=== PATIENT | female | born 1990 | race Caucasian/White ===

== ENCOUNTER 2018-05-25 20:15 | Emergency (ER) | payer BC, MEDICAID ==
[~2018-05-25] VITALS: Ht 167.6 cm; Wt 108.9 kg
--- NOTE | 2018-05-25 20:22 | NUR ---
PT BIB SELF. COMP OF FEELING "SHORT OF BREATH, INHALER NOT WORKING, REFERRED BY PRIMARY", NO SOB WITH AMBULATION. NO ACUTE DISTRESS AT THIS TIME. NO PAIN NOTED. AWAITING MD TUBBS.
[2018-05-25 20:30] VITALS: BP 158/88
== END 2018-05-25 20:43 | disposition home or self-care (01) ==
LOC: ER 20:26
DX: J45.909 Unspecified asthma, uncomplicated (principal); F41.9 Anxiety disorder, unspecified; F31.9 Bipolar disorder, unspecified; F17.200 Nicotine dependence, unspecified, uncomplicated

== ENCOUNTER 2018-11-15 15:40 | Emergency (ER) | payer MEDICAID ==
[~2018-11-15] VITALS: Ht 165.1 cm; Wt 111.1 kg
--- NOTE | 2018-11-15 15:50 | NUR ---
CAME IN FOR NECK AND UPPER BACK PAIN S/P FALLING OFF A BUNK BED LAST TUESDAY. -KO. TO ER BED 9, HOOKED TO MONITOR, PROVIDED W WARM BLANKET, AWAITING MD TUBBS.
--- NOTE | 2018-11-15 15:57 | NUR ---
LIBORIO SOUZA MD AT BEDSIDE
--- NOTE | 2018-11-15 16:05 | NUR ---
PER DR SOUZA, CERVICAL COLLAR NOT NEEDED.
[2018-11-15] MEDS ORDERED: KETOROLAC TROMETHAMINE INJ 30 MG/ML VIAL IM ONE (16:30)
--- NOTE | 2018-11-15 16:35 | NUR ---
URINE SAMPLE SENT TO LAB
[2018-11-15] MEDS ORDERED: KETOROLAC TROMETHAMINE INJ 60 MG/2 ML VIAL IM ONE (16:59)
--- NOTE | 2018-11-15 17:24 | NUR ---
PT BACK FROM CT SCAN
--- NOTE | 2018-11-15 17:50 | NUR ---
US TECH AT BEDSIDE
[2018-11-15 18:41] VITALS: BP 152/91
--- NOTE | 2018-11-15 18:41 | NUR ---
Patient discharged to home in stable condition. Written and verbal after care instructions given. Patient verbalizes understanding of instruction.
== END 2018-11-15 18:42 | disposition home or self-care (01) ==
LOC: ER 15:45
DX: S13.8XXA Sprain of joints and ligaments of other parts of neck, initial encounter (principal); S23.3XXA Sprain of ligaments of thoracic spine, initial encounter; R51 Headache; F41.9 Anxiety disorder, unspecified; F31.81 Bipolar II disorder; F90.9 Attention-deficit hyperactivity disorder, unspecified type; F10.10 Alcohol abuse, uncomplicated; F17.200 Nicotine dependence, unspecified, uncomplicated; Y90.9 Presence of alcohol in blood, level not specified; W06.XXXA Fall from bed, initial encounter; Y93.89 Activity, other specified; Y92.89 Other specified places as the place of occurrence of the external cause; Y99.8 Other external cause status
CPT/HCPCS: 70450; 71045; 72125; 84703; 93880; 96372; 99284; J1885